=== PATIENT | male | born 1935 | race Caucasian/White ===

== ENCOUNTER 2021-10-23 18:52 | Inpatient (IN) | payer OTHER ==
[~2021-10-23] VITALS: Ht 165.1 cm; Wt 81.2 kg
--- NOTE | 2021-10-23 19:10 | NUR ---
PT BIB [facility] 82 FROM HOME C/O ABD PAIN SINCE THIS AM AND AN EPISODE OF VOMITTING. PARAMEDICS ADMINISTERED 4 MG PO OF ZOFRAN ON FIELD. PT A/O X3, DENIES CP/PRESSURE. NO SOB OR LABORED BREATHING, AFEBRILE.
--- NOTE | 2021-10-23 19:24 | NUR ---
DR. ASHTON AT BEDSIDE, MSE IN PROGRESS. AT BEDSIDE.
[2021-10-23] MEDS ORDERED: HYDROMORPHONE 1 MG/1 ML DISP.SYRIN IV ONE (19:45)
[2021-10-23] MEDS ORDERED: PROCHLORPERAZINE EDISYLATE 10 MG/2 ML VIAL IV ONE (19:45)
[2021-10-23] MEDS ORDERED: IV NORMAL SALINE 1000 ML BAG IV ONE (19:45)
[2021-10-23] MEDS ORDERED: HYDROMORPHONE 1 MG/1 ML DISP.SYRIN ONE (19:58)
[2021-10-23] MEDS ORDERED: PROCHLORPERAZINE EDISYLATE 10 MG/2 ML VIAL ONE (19:58)
[2021-10-23 20:26] LABS: HEMATOCRIT 24.2 % (36.7-47.1); MEAN CORPUSCULAR HEMOGLOBIN 29.9 uug (23.8-33.4); MEAN CORPUSCULAR VOLUME 86.6 fL (73.0-96.2); PLATELET COUNT (AUTO) 197 K/uL (152-348)
[2021-10-23 20:31] LABS: CARBON DIOXIDE 30 mmol/L (21-32); CHLORIDE 102 mmol/L (98-107); CREATININE 1.8 mg/dL (0.6-1.3); GLUCOSE 133 mg/dL (74-106); POTASSIUM 3.2 mmol/L (3.5-5.1); UREA NITROGEN, BLOOD 42 mg/dL (7-18)
--- NOTE | 2021-10-23 20:38 | NUR ---
XRAY AT BEDSIDE.
[2021-10-23 20:40] LABS: ALANINE AMINOTRANSFERASE 15 U/L (16-63); ALKALINE PHOSPHATASE 56 U/L (50-136); ASPARTATE AMINOTRANSFERASE 13 U/L (15-37); BILIRUBIN,DIRECT 0.2 mg/dL (0.0-0.2); BILIRUBIN,TOTAL 0.5 mg/dL (0.2-1.0); LIPASE 72 U/L (73-393); TOTAL PROTEIN, SERUM 6.5 g/dL (6.4-8.2)
[2021-10-23] MEDS ORDERED: FAMO20TA8 PO (20:51)
[2021-10-23] MEDS ORDERED: CLOP75TA33 PO (20:51)
[2021-10-23] MEDS ORDERED: LINA290C PO (20:51)
[2021-10-23] MEDS ORDERED: FURO40TA5 PO (20:51)
[2021-10-23] MEDS ORDERED: ROSU20TA2 PO (20:51)
[2021-10-23] MEDS ORDERED: CARV3.122 PO (20:51)
[2021-10-23] MEDS ORDERED: RIVA15TA PO (20:51)
[2021-10-23] MEDS ORDERED: ERGO50CA PO (20:51)
[2021-10-23] MEDS ORDERED: LEVO25TA9 PO (20:51)
--- NOTE | 2021-10-23 20:51 | NUR ---
Patient's brought bottles of prescription medications that patient takes at home and was entered in [employer].
[2021-10-23] MEDS ORDERED: NITROGLYCERIN OINT 1 GM PACKET TP ONE ×2 (22:15→22:18)
[2021-10-23] MEDS ORDERED: ASPIRIN 81 MG TAB.CHEW PO ONE (22:15)
[2021-10-23] MEDS ORDERED: POTASSIUM BICARBONATE/CIT AC 25 MEQ TABLET.EFF PO ONE (22:15)
[2021-10-23] MEDS ORDERED: ASPIRIN 81 MG TAB.CHEW ONE (22:18)
[2021-10-23] MEDS ORDERED: POTASSIUM BICARBONATE/CIT AC 25 MEQ TABLET.EFF ONE (22:18)
[2021-10-23] MEDS ORDERED: CHOLECALCIFEROL 1,000 UNIT TABLET ONE (22:24)
[2021-10-23] MEDS ORDERED: CHOLECALCIFEROL 1,000 UNIT TABLET PO SCH (22:30)
[2021-10-23 23:01] LABS: IRON, SERUM 28 ug/dL (50-175)
--- NOTE | 2021-10-23 23:05 | NUR ---
SPOKE WITH CONNIE FROM [facility] FOR CLINICAL REPORT. CONNIE WILL INFORM YUKI DREW AND WILL AWAIT CALL BACK.
[2021-10-23] MEDS ORDERED: hydrALAZINE HCL 20 MG/1 ML VIAL IV PRN (23:15)
[2021-10-23] MEDS ORDERED: ONDANSETRON 4 MG/2 ML VIAL IV PRN (23:15)
[2021-10-23] MEDS ORDERED: MORPHINE SULFATE 2 MG/1 ML DISP.SYRIN IV PRN (23:15)
[2021-10-23] MEDS ORDERED: ACETAMINOPHEN 325 MG TABLET PO PRN (23:15)
[2021-10-23] MEDS ORDERED: CEFEPIME HCL 1 G in IV DEXTROSE 5% 50 ML IV SCH (23:30)
[2021-10-23 23:58] LABS: THYROID STIMULATING HORMONE 3.406 mIU/mL (0.358-3.740)
--- NOTE | 2021-10-24 02:15 | NUR ---
GAVE REPORT TO GEORGE.
--- NOTE | 2021-10-24 02:50 | NUR ---
Pt. admitted to TELE , under care of Dr. Taylor Dx: NSTEMI Belongs List completed Pt admitted in stable condition. Denied any pain/discomfort. No SOB or labored breathing. No GI/ distress. Denied REGALADO/dizzyness. No n/v/d. No changes in LOC.
[2021-10-24 03:00] VITALS: BP 130/63
[2021-10-24] MEDS ORDERED: CEFEPIME HCL 1 G in IV DEXTROSE 5% 50 ML IV ONE (03:00)
--- NOTE | 2021-10-24 03:00 | NUR ---
Admitted patient to Tele unit dx of NSTEmi under . Patient AALOx4.UNGA.Denies pain at this time.ON O2 at 2 LPM via NC.Iv patent and intact on left UA. Started on IV ATb as ordered .No a/r noted. Patient able to ambulate with assist.Skin is intact. Call light with in reach. SAfety measures in place. Will continue to monitor.
[2021-10-24] MEDS ORDERED: CEFEPIME HCL 1 G VIAL ONE (03:32)
[2021-10-24 06:51] LABS: HEMATOCRIT 22.3 % (36.7-47.1); MEAN CORPUSCULAR HEMOGLOBIN 29.9 uug (23.8-33.4); MEAN CORPUSCULAR VOLUME 86.3 fL (73.0-96.2); PLATELET COUNT (AUTO) 187 K/uL (152-348)
[2021-10-24] MEDS ORDERED: LEVOTHYROXINE SODIUM 25 MCG TABLET PO SCH (07:00)
[2021-10-24 07:09] LABS: ALANINE AMINOTRANSFERASE 13 U/L (16-63); ALKALINE PHOSPHATASE 52 U/L (50-136); ASPARTATE AMINOTRANSFERASE 11 U/L (15-37); BILIRUBIN,TOTAL 0.4 mg/dL (0.2-1.0); CARBON DIOXIDE 34 mmol/L (21-32); CHLORIDE 104 mmol/L (98-107); CREATININE 1.8 mg/dL (0.6-1.3); GLUCOSE 115 mg/dL (74-106); PHOSPHOROUS 5.8 mg/dL (2.5-4.9); POTASSIUM 4.2 mmol/L (3.5-5.1); TOTAL PROTEIN, SERUM 6.2 g/dL (6.4-8.2); UREA NITROGEN, BLOOD 41 mg/dL (7-18)
[2021-10-24] MEDS ORDERED: CARVEDILOL 3.125 MG TABLET PO SCH (08:00)
--- NOTE | 2021-10-24 08:47 | NUR ---
Critical result called by the lab. TROPONIN is 136. MAYRA Elizabeth made aware.
[2021-10-24] MEDS ORDERED: MIRALAX 17 GM POWD.PACK PO SCH (09:00)
[2021-10-24] MEDS ORDERED: CLOPIDOGREL 75 MG TABLET PO SCH (09:00)
[2021-10-24] MEDS ORDERED: HEPARIN SODIUM,PORCINE 5,000 UNITS/ML VIAL SQ SCH ×2 (09:00)
[2021-10-24] MEDS ORDERED: FUROSEMIDE 40 MG TABLET PO SCH (09:00)
[2021-10-24] MEDS ORDERED: FAMOTIDINE 20 MG TABLET PO SCH ×3 (09:00)
[2021-10-24] MEDS ORDERED: DOCUSATE SODIUM 100 MG CAPSULE PO SCH (09:00)
[2021-10-24] MEDS ORDERED: DOCU-141 PO (10:28)
[2021-10-24 11:38] VITALS: BP 100/56
[2021-10-24] MEDS ORDERED: SOD FERRIC GLUC COMPLX/SUCROSE 125 MG in IV NORMAL SALINE 100 ML IV SCH (14:00)
--- NOTE | 2021-10-24 14:45 | NUR ---
Discharged patient on stable condition. Skin intact. no distress noted. dc instructions given, understanding noted. belonging list signed. all needs attended.
[2021-10-24] MEDS ORDERED: CEFEPIME HCL 1 G in IV DEXTROSE 5% 50 ML IV SCH (15:00)
[2021-10-24] MEDS ORDERED: RIVAROXABAN 15 MG TABLET PO SCH (17:00)
[2021-10-24] MEDS ORDERED: ATORVASTATIN 40 MG TABLET PO SCH (21:00)
== END 2021-10-24 14:45 | disposition home or self-care (01) | DRG 280 ==
LOC: ER 18:53 → TELE3 23:30
PROVIDERS: ADMIT Internal Medicine; ATTEND Nurse Practitioner Acute Care
DX: I21.4 Non-ST elevation (NSTEMI) myocardial infarction (principal); N17.0 Acute kidney failure with tubular necrosis; K56.7 Ileus, unspecified; I13.0 Hypertensive heart and chronic kidney disease with heart failure and stage 1 through stage 4 chronic kidney disease, or unspecified chronic kidney disease; I50.22 Chronic systolic (congestive) heart failure; Z20.822 Contact with and (suspected) exposure to COVID-19; I25.10 Atherosclerotic heart disease of native coronary artery without angina pectoris; D50.9 Iron deficiency anemia, unspecified; N18.9 Chronic kidney disease, unspecified; E03.9 Hypothyroidism, unspecified; Z95.1 Presence of aortocoronary bypass graft; I25.5 Ischemic cardiomyopathy; Z95.810 Presence of automatic (implantable) cardiac defibrillator; I48.91 Unspecified atrial fibrillation; Z79.01 Long term (current) use of anticoagulants
CPT/HCPCS: 36415; 71045; 83550; 83605; 83690; 83735; 84100; 84443; 84484; 85025; 93005; A4663; G0378; J0692; J0780; J1170; J2916; J7040